=== PATIENT | male | born 1955 | race Caucasian/White ===

== ENCOUNTER 2017-05-18 05:58 | Day surgery (SDC) | payer MEDICAID ==
--- NOTE | 2017-05-08 20:56 | HP ---
DATE OF ADMISSION: 05/18/2017 HISTORY OF PRESENT ILLNESS: This is the first orthopedic outpatient admission for surgery for this 62-year- old male who has been admitted with severe pain of the right shoulder with severe rotator cuff impingement secondary to large exostosis formation of the AC joint. The patient has had failed treatment and continues to have severe pain problems. He is now being admitted for the surgical procedure of arthroscopic decompression. Procedure has been outlined to him along with the risks and complications involved with it. He understands it and has consented to the surgery. ALLERGIES: Penicillin. CURRENT MEDICATIONS: Glucosamine, vitamin C, and Relafen 500 mg. PAST MEDICAL HISTORY: The patient has had a previous history of increased cholesterol, also skin cancer, and also a history of chlorine gas causing slight scarring of his lungs. PAST SURGICAL HISTORY: Positive for previous right shoulder surgery along with colonoscopy. No anesthesia complications or problems are noted. He has a negative bleeding history, negative blood clot history. He is a nonsmoker. Alcohol is very infrequent, social only. PHYSICAL EXAMINATION: GENERAL: Examination today reveals a well-developed, well-nourished 62-year-old male in moderate distress. HEAD, EYES, EARS, NOSE, AND THROAT: Normocephalic. NECK: Supple. CHEST: Clear. COR: Regular rate. ABDOMEN: Soft. : Intact. EXTREMITIES: Examination of the right shoulder reveals positive pain on palpation over the right AC joint in the anterior rotator cuff region. He has positive Vazquez examination and +3 for pain, positive Neer examination +3 for pain. RADIOLOGY: X-rays reveal severe osteoarthritis of the AC joint with inferior exostosis formation right shoulder. PLAN: Plan will be for the patient to undergo a surgical arthroscopy of the right shoulder for rotator cuff decompression, removal of exostosis formation, possible rotator cuff repair if that is found. Procedures were outlined to him. He understands the risks and complications involved and has consented to the surgery. YARED /[id number] CK
[~2017-05-18 05:58] MED LIST: Lactated Ringers 1,000 ML IV SCH; Lidocaine 1%/Sod Bicarbonate in NS 8.4% 1 ML Syringe IDERM PRN; Sodium Chloride 0.9% 10 ML Syringe FLUSH PRN
[2017-05-18] MEDS ORDERED: Ropivacaine 0.5% 5 MG/ML 30 ML SDV ONE (06:42)
[2017-05-18] MEDS ORDERED: EPINEPHrine 1 MG/ML SDV ONE (06:42)
[2017-05-18] MEDS ORDERED: ceFAZolin 1 GM Vial ONE (07:02)
[2017-05-18] MEDS ORDERED: Rocuronium 50 MG/5 ML Vial ONE ×2 (07:02→09:10)
[2017-05-18] MEDS ORDERED: Dexamethasone 4 MG/ML SDV ONE ×2 (07:02→09:10)
[2017-05-18] MEDS ORDERED: Propofol 200 MG/20 ML SDV ONE (07:02)
[2017-05-18] MEDS ORDERED: Lactated Ringers 2,000 ML ONE (07:02)
[2017-05-18] MEDS ORDERED: fentaNYL 250 MCG/5 ML SDV ONE (07:02)
[2017-05-18] MEDS ORDERED: Midazolam 1 MG/ML 2 ML SDV ONE (07:02)
[2017-05-18] MEDS ORDERED: Ondansetron 4 MG/2 ML SDV ONE (07:02)
[2017-05-18] MEDS ORDERED: EPINEPHrine 1 MG/ML 30 ML MDV ONE ×2 (07:04→09:53)
--- NOTE | 2017-05-18 07:24 | PCM.PREANE ---
Preanesthetic Assessment - Procedure Proposed Procedure: Right Shoulder Arthroscopy with rotator cuff decompression - Anesthesia/Transfusion/Family Hx Anesthesia History: Prior Anesthesia Without Reaction - Review of Systems General: Fatigue Pulmonary: No Symptoms Cardiovascular: No Symptoms Gastrointestinal: No Symptoms Neurological: No Symptoms, Other Other: Reports: None - Physical Assessment NPO Status Date: 05/17/17 NPO Status Time: 21:00 O2 Sat by Pulse Oximetry: 94 Respiratory Rate: 16 Vital Signs: Last Vital Signs Temp 36.9 C 05/18/17 06:00 Pulse 69 05/18/17 06:00 Resp 16 05/18/17 06:00 BP 122/78 05/18/17 06:00 Pulse Ox 94 L 05/18/17 06:00 Height: 1.7 m Weight: 100.244 kg ASA Class: 2 Mental Status: Alert & Oriented x3 Airway Class: Mallampati = 2 Dentition: Reports: Normal Dentition Thyro-Mental Finger Breadths: 2 Mouth Opening Finger Breadths: 3 ROM/Head Extension: Full Lungs: Clear to Auscultation, Normal Respiratory Effort Cardiovascular: Regular Rate, Regular Rhythm - Imaging/EKG Impressions: SR, prolonged QT - Allergies Allergies/Adverse Reactions: Allergies Allergy/AdvReac Type Severity Reaction Status Date / Time Penicillins AdvReac Dizziness Verified 03/08/16 15:32 - Acknowledgements Anesthesia Type Planned: General Anesthesia, Regional Block Pt an Appropriate Candidate for the Planned Anesthesia: Yes Alternatives and Risks of Anesthesia Discussed w Pt/Guardian: Yes Pt/Guardian Understands and Agrees with Anesthesia Plan: Yes PreAnesthesia Questionnaire HEENT History: Reports: Impaired Vision, Other (See Below) Other HEENT History: impacted cerumen, glasses Cardiovascular History: Reports: High Cholesterol, Hypertension Respiratory History: Reports: Other (See Below) Other Respiratory History: cough Gastrointestinal History: Reports: Chronic Diarrhea Genitourinary History: Reports: None [employer] DIRECTOR History: Reports: None Musculoskeletal History: Reports: Other (See Below) Other Musculoskeletal History: shoulder pain, AC joint bone spurs, left knee pain, rotator cuff impingment , left rotator cuff tear Neurological History: Reports: None Psychiatric History: Reports: Other (See Below) Other Psychiatric History: fatigue Endocrine/Metabolic History: Reports: Obesity/BMI 30+ Hematologic History: Reports: Other (See Below) Other Hematologic History: sepsis Immunologic History: Reports: None Oncologic (Cancer) History: Reports: Other (See Below) Other Oncologic History: skin cancer - Past Surgical History Head Surgeries/Procedures: Reports: None Cardiovascular Surgical History: Reports: None Respiratory Surgical History: Reports: None GI Surgical History: Reports: Appendectomy, Colonoscopy, EGD Female Surgical History: Reports: None Male Surgical History: Reports: None Endocrine Surgical History: Reports: None Neurological Surgical History: Reports: None Musculoskeletal Surgical History: Reports: Shoulder Surgery Oncologic Surgical History: Reports: None Dermatological Surgical History: Reports: Other (See Below) - SUBSTANCE USE Smoking Status *Q: Former Smoker Tobacco Use Within Last Twelve Months: No Second Hand Smoke Exposure: No Days Per Week of Alcohol Use: 0 Recreational Drug Use History: No - HOME MEDS Home Medications: Home Meds Ascorbic Acid [Vitamin C] 500 mg PO DAILY 05/17/17 [History] Gluc HCl/Csa/Arslan Hy/Hyalur Ac [Glucosamine Chondroitin] 1 cap PO DAILY [History] Lisinopril [Lisinopril] 10 mg PO DAILY 05/17/17 [History] - CURRENT (IN HOUSE) MEDS Current Meds: Current Medications Lactated Ringer's (Ringers, Lactated) 1,000 mls @ 125 mls/hr IV ASDIRECTED [place] Stop: 05/18/17 23:00 Last Admin: 05/18/17 06:30 Dose: 125 mls/hr Lidocaine/Sodium Bicarbonate (Buffered Lidocaine 1% In Ns 8.4%) 0.25 ml IDERM ONETIME PRN PRN Reason: Prior to IV Start Stop: 05/18/17 18:00 Last Admin: 05/18/17 06:29 Dose: 0.25 ml Sodium Chloride (Saline Flush) 10 ml FLUSH ASDIRECTED PRN PRN Reason: Keep Vein Open Stop: 05/18/17 18:00 Discontinued Medications Cefazolin Sodium (Ancef) Confirm Administered Dose 2 gm .ROUTE .STK-MED ONE Stop: 05/18/17 07:03 Dexamethasone (Dexamethasone) Confirm Administered Dose 4 mg .ROUTE .STK-MED ONE Stop: 05/18/17 07:03 Epinephrine HCl (Adrenalin) Confirm Administered Dose 1 mg .ROUTE .STK-MED ONE Stop: 05/18/17 06:43 Fentanyl (Sublimaze) Confirm Administered Dose 250 mcg .ROUTE .STK-MED ONE Stop: 05/18/17 07:03 Lactated Ringer's (Ringers, Lactated) Confirm Administered Dose 2,000 mls @ as directed .ROUTE .[facility]-MED ONE Stop: 05/18/17 07:03 Midazolam HCl (Versed 1 Mg/Ml) Confirm Administered Dose 2 mg .ROUTE .[facility]-MED ONE Stop: 05/18/17 07:03 Ondansetron HCl (Zofran) Confirm Administered Dose 4 mg .ROUTE .[facility]-MED ONE Stop: 05/18/17 07:03 Propofol (Diprivan 20 Ml) Confirm Administered Dose 400 mg .ROUTE .[facility]-MED ONE Stop: 05/18/17 07:03 Rocuronium [place] (Zemuron) Confirm Administered Dose 50 mg .ROUTE .[facility]-MED ONE Stop: 05/18/17 07:03 Ropivacaine (Naropin 0.5%) Confirm Administered Dose 30 ml .ROUTE .[facility]-MED ONE Stop: 05/18/17 06:43
[2017-05-18] MEDS ORDERED: Acetaminophen/HYDROcodone 325-5 MG Tab PO PRN (07:43)
[2017-05-18] MEDS ORDERED: Ketorolac 15 MG/ML SDV IVPUSH PRN (07:43)
[2017-05-18] MEDS ORDERED: Ondansetron 4 MG/2 ML SDV IVPUSH PRN (07:43)
[2017-05-18] MEDS ORDERED: Cyclobenzaprine 10 MG Tab PO PRN (07:43)
[2017-05-18] MEDS ORDERED: Phenylephrine/Normal Saline 100 MCG/ML 10 ML Syringe ONE (09:10)
[2017-05-18] MEDS ORDERED: ePHEDrine/Normal Saline 25 MG/5 ML Syringe ONE (09:10)
--- NOTE | 2017-05-18 09:30 | PCM.SN ---
- Free Text/Narrative Note: Anesthesia Procedure Note: (Interscalene Block Note) Date: 05/18/2017 Time Out: 736 Start: 736 Stop: 749 Surgical Procedure: Right Shoulder Video Arthroscopy with Rotator Cuff Decompression Diagnosis: Right Shoulder Rotator Cuff impingement, bone spur Current Procedure: Right Interscalene Block under US guidance for postoperative pain control requested by Dr. Galindo. Patient chart reviewed, risk/benefits discussed with patient, consent obtained. Patient positioned supine, monitors/alarms on, oxygen placed via nasal cannula at 2 LPM. IV sedation administered: Versed 2mg IV @ 0738 Fentanyl 50 mcg IV @ 0738 Monitors applied (EKG, NIBP, SpO2) alarms on. Nasal Cannula on at 3L/min. Right shoulder prepped with two chloropreps. Sterile drapes placed with aseptic technique noted. Under US guidance right subclavian artery visualized along with the right brachial plexus. Plexus followed up to C6 cricoid level, and area localized with 2mls of 1% lidocaine. 22gauge 2 inch stimiplex needle advanced under US with 0.8mV with stimulation of biceps noted. Good stimulation noted with decreased voltage and absent at 0.2mVs. 1ml of Normal Saline injected with loss of stimulation noted to confirm needle not placed intraneurally. Incremental dosing of 5mls with negative aspiration noted prior to each injection of 0.5% ropivacaine with 1:200,000 epinephrine. Total volume=30mls. Clarence tolerated the procedure well. No complications were noted. Vital signs stable throughout the procedure. Clarence verbalized pain subsiding in shoulder with limited movement noted at completion. See Nursing Notes for vital signs. Vital signs stable throughout procedure. Blu De La Torre CRNA
[2017-05-18] MEDS ORDERED: fentaNYL 100 MCG/2 ML SDV ONE (09:59)
[2017-05-18] MEDS ORDERED: Neostigmine Methylsulfate 1 MG/ML 5 ML Syringe ONE (10:12)
--- NOTE | 2017-05-18 10:48 | PCM.POSTAN ---
POST ANESTHESIA ASSESSMENT - MENTAL STATUS Mental Status: Alert, Oriented - VITAL SIGNS Pulse Rate: 54 SaO2: 98 Resp Rate: 10 Blood Pressure: 114/70 Temperature: 36.2 C - RESPIRATORY Respiratory Status: Respiratory Rate WNL, Airway Patent, O2 Saturation Stable, Supplemental Oxygen - CARDIOVASCULAR CV Status: Pulse Rate WNL, Blood Pressure Stable - GASTROINTESTINAL GI Status: No Symptoms - PAIN Pain Score: 0 - POST OP HYDRATION Hydration Status: Adequate & Stable
[2017-05-18] MEDS ORDERED: fentaNYL 100 MCG/2 ML SDV IVPUSH PRN (10:55)
[2017-05-18] MEDS ORDERED: Haloperidol Lactate 5 MG/ML SDV IVPUSH ONE (10:55)
[2017-05-18] MEDS ORDERED: HYDROmorphone 0.5 MG/0.5 ML SYRINGE IV PRN (10:56)
--- NOTE | 2017-05-18 11:51 | PCM48HPAN ---
Post Anesthesia Note - EVALUATION WITHIN 48HRS OF ANESTHETIC Vital Signs in Normal Range: Yes Patient Participated in Evaluation: Yes Respiratory Function Stable: Yes Airway Patent: Yes Cardiovascular Function Stable: Yes Hydration Status Stable: Yes Pain Control Satisfactory: Yes Nausea and Vomiting Control Satisfactory: Yes Mental Status Recovered: Yes Pulse Rate: 54 Resp Rate: 12 Temperature: 36.2 C Blood Pressure: 114/70 - COMMENTS/OBSERVATIONS Free Text/Narrative:: Interscalene block working well. Clarence denies pain.
[2017-05-18] MEDS ORDERED: Morphine 15 MG Tab.ER PO ONE (12:00)
[2017-05-18 14:00] VITALS: BP 122/78
--- NOTE | 2017-05-19 07:55 | OR ---
DATE OF OPERATION: 05/18/2017 SURGEON: Merrill Galindo MD PREOPERATIVE DIAGNOSIS: 1. Right shoulder rotator cuff impingement. 2. Right shoulder severe acromioclavicular joint degenerative disease with inferior exostosis formation. 3. Right shoulder intra-articular tearing, glenoid labrum. 4. Right shoulder previous rotator cuff repair with degeneration and biceps tendinosis of the right shoulder. POSTOPERATIVE DIAGNOSIS: 1. Right shoulder rotator cuff impingement. 2. Right shoulder severe acromioclavicular joint degenerative disease with inferior exostosis formation. 3. Right shoulder intra-articular tearing, glenoid labrum. 4. Right shoulder previous rotator cuff repair with degeneration and biceps tendinosis of the right shoulder. ANESTHESIA: General. OPERATION PERFORMED: 1. Right shoulder arthroscopic debridement of shoulder joint and excision of torn labrum and fibrous adhesions and debridement of partial tearing, rotator cuff. 2. Right shoulder arthroscopic partial acromionectomy. 3. Arthroscopic distal clavicle resection, right shoulder. DESCRIPTION OF PROCEDURE: The patient was taken to the operating room in supine position, was placed under a general anesthesia. He was then placed in a sitting position for an arthroscopic approach to the right shoulder. Once the patient was positioned, the operation proceeded with prepping and draping of the shoulder by standard technique and after prepping and draping, the operation proceeded with a posterior approach to the shoulder through the anatomical soft spot. With the posterior portal developed, an arthroscope was inserted. A [employer] papa was used to develop the anterior portal. The operation proceeded with evaluation of the shoulder joint. The subscapularis was intact anteriorly although significant scarring leading up to the glenoid labrum. The glenoid labrum had tearing and degeneration; anterior, superior, and posterior. This was all debrided smooth. The biceps tendon showed biceps tendinosis probably secondary to the impingement problem from the exostosis and this was slightly debrided. The rotator cuff itself had a previous rotator cuff surgery. There were several loose sutures within the joint. The area of the rotator cuff was marked. This did show degeneration of the repair site area. There was still significant fiber formation attachment. With the marking suture, this would be examined on the exterior surface. Once the intra-articular portion of the surgery was completed, the operation then proceeded with the arthroscope inserted in the subacromial space. A lateral portal was then developed. The bursectomy and removal of fibrous adhesions were carried out in the subacromial space area to gain exposure of the exterior surface of the rotator cuff area along with the undersurface of the clavicle and the acromion. Once that was completed, the evaluation showed a very large anterior exostosis formation on the acromion with significant curving extending down to the area of the rotator cuff damage. Also, there was a layer of large exostosis formation distal in the clavicle. The operation then proceeded with partial acromionectomy using the standard bur approach. Once the acromion was burred smooth and flat, the operation then proceeded with removal of distal portion of the clavicle, removing the large exostosis that had formed. The space for the clavicle was approximately 7 mm between the clavicle and acromion. The soft tissues in the capsular area were carefully inspected to make sure no bone fragments remained, and then the operation proceeded with debridement of the area and then I went back to where the area of attachment of the rotator cuff was seen, it was repalpated, it definitely showed degeneration of the fibers that had significant hardness to it and felt that was sufficient for continued use rather than to try to approach and go to a full-blown rotator cuff repair. The operation then proceeded with the final inspection of the joint area. All bleeding was controlled with electrocautery. After thorough irrigation of the joint area, the patient's wounds were then closed with 3-0 Prolene. Standard soft dressings were applied. The patient tolerated the procedure well. He left the operating room in stable condition to his room for recovery. ESTIMATED BLOOD LOSS: MMODAL /[id number]
== END 2017-05-18 13:45 | disposition home or self-care (01) ==
LOC: JD.SDS 05:58
PROVIDERS: ATTEND Specialist
DX: M75.41 Impingement syndrome of right shoulder (principal); S43.491A Other sprain of right shoulder joint, initial encounter; M89.9 Disorder of bone, unspecified; M75.21 Bicipital tendinitis, right shoulder; E78.5 Hyperlipidemia, unspecified; Z88.0 Allergy status to penicillin; Z79.899 Other long term (current) drug therapy; X58.XXXA Exposure to other specified factors, initial encounter
CPT/HCPCS: 29823; 29824; 29826; 64415; A9270; J0171; J0690; J1100; J2250; J2405; J2710; J2795; J3010; J7050; J7120; J2704

== ENCOUNTER 2021-04-22 09:44 | Day surgery (SDC) | payer MEDICARE, OTHER ==
[~2021-04-22 09:44] MED LIST changes: -Sodium Chloride 0.9% 10 ML Syringe FLUSH PRN; +Sodium Chloride 0.9% 10 ML Syringe FLUSH SCH
[2021-04-22] MEDS ORDERED: Bupivacaine 0.5% 30 ML SDV ONE (12:04)
[2021-04-22] MEDS ORDERED: Midazolam 1 MG/ML 2 ML SDV ONE (12:11)
[2021-04-22] MEDS ORDERED: Propofol 200 MG/20 ML SDV ONE (12:11)
[2021-04-22] MEDS ORDERED: Lidocaine 1% 4 ML ONE (12:11)
[2021-04-22] MEDS ORDERED: fentaNYL 100 MCG/2 ML SDV ONE (12:11)
[2021-04-22] MEDS ORDERED: Clindamycin Phosphate in D5W 900 MG in Premix Bag 1 BAG IV ONE ×2 (12:45)
[2021-04-22] MEDS ORDERED: Ketamine 500 mg/10 ML MDV ONE (12:52)
[2021-04-22] MEDS ORDERED: Ondansetron 4 MG/2 ML SDV ONE (13:31)
[2021-04-22] MEDS ORDERED: Ondansetron 4 MG/2 ML SDV IVPUSH PRN (15:00)
[2021-04-22] MEDS ORDERED: HYDROmorphone 0.5 MG/0.5 ML Syringe IVPUSH PRN (15:00)
[2021-04-22] MEDS ORDERED: fentaNYL 100 MCG/2 ML SDV IVPUSH PRN (15:00)
[2021-04-22] MEDS ORDERED: oxyCODONE 5 MG Tab PO ONE (15:58)
[2021-04-22 16:46] VITALS: BP 128/74; PULSE 74
== END 2021-04-22 16:55 | disposition home or self-care (01) ==
LOC: JD.SDS 09:44
PROVIDERS: ATTEND Surgery
DX: K40.90 Unilateral inguinal hernia, without obstruction or gangrene, not specified as recurrent (principal); I10 Essential (primary) hypertension; N40.0 Benign prostatic hyperplasia without lower urinary tract symptoms; E78.00 Pure hypercholesterolemia, unspecified; E66.9 Obesity, unspecified; Z88.0 Allergy status to penicillin; Z90.49 Acquired absence of other specified parts of digestive tract; Z98.890 Other specified postprocedural states; Z68.34 Body mass index [BMI] 34.0-34.9, adult
CPT/HCPCS: 49505; A9270; C1781; J2250; J2370; J2405; J2704; J3010; J3490; J7120; 00830

== ENCOUNTER 2023-04-27 09:10 | Day surgery (SDC) | payer MEDICARE, OTHER ==
[~2023-04-27 09:10] MED LIST changes: +Cefuroxime 10 MG/ML SYRINGE EYELF SCH; -Lactated Ringers 1,000 ML IV SCH; +Lidocaine 1% PF 2 ML SDV INJECT SCH; -Lidocaine 1%/Sod Bicarbonate in NS 8.4% 1 ML Syringe IDERM PRN; +Pilocarpine 4% Ophth Soln 15 ML Bot EYELF SCH; -Sodium Chloride 0.9% 10 ML Syringe FLUSH SCH
[2023-04-27 09:54] VITALS: BP 138/72; PULSE 62
[2023-04-27] MEDS: Polymyxin B/Trimethoprim 10 ML Bottle EYELF SCH ×3 (09:55→11:40)
[2023-04-27] MEDS: Brimonidine 0.2% Ophth Soln 5 ML Bottle EYELF SCH ×3 (10:00→11:40)
[2023-04-27] MEDS: Phenylephrine 2.5% Ophth Soln 2 ML Bot EYELF SCH ×5 (10:05→11:09)
[2023-04-27] MEDS: Tropicamide 1% Ophth Soln 3 ML Bottle EYELF SCH ×4 (10:11→10:57)
[2023-04-27] MEDS: Tetracaine HCl/PF 0.5% 4 ML Bottle EYEBOTH SCH ×4 (10:59→11:21)
== END 2023-04-27 11:48 ==
LOC: JD.SDS 09:10
PROVIDERS: ATTEND Ophthalmology
DX: H25.813 Combined forms of age-related cataract, bilateral (principal); H21.81 Floppy iris syndrome; H21.42 Pupillary membranes, left eye; I10 Essential (primary) hypertension; E78.00 Pure hypercholesterolemia, unspecified; Z79.899 Other long term (current) drug therapy; Z88.0 Allergy status to penicillin
CPT/HCPCS: A9270-GY; J0697; J3490

== ENCOUNTER 2023-05-25 13:30 | Day surgery (SDC) | payer MEDICARE, OTHER ==
[2023-05-25] MEDS: Polymyxin B/Trimethoprim 10 ML Bottle EYERT SCH (13:48)
[2023-05-25] MEDS: Brimonidine 0.2% Ophth Soln 5 ML Bottle EYERT SCH (13:53)
[2023-05-25] MEDS: Phenylephrine 2.5% Ophth Soln 2 ML Bot EYERT SCH (13:56)
[2023-05-25] MEDS: Tropicamide 1% Ophth Soln 3 ML Bottle EYERT SCH (13:59)
[2023-05-25] MEDS: Tetracaine HCl/PF 0.5% 4 ML Bottle EYEBOTH SCH (14:35)
[2023-05-25] MEDS: Lidocaine 1% PF 2 ML SDV INJECT SCH (14:57)
[2023-05-25] MEDS: Pilocarpine 4% Ophth Soln 15 ML Bot EYERT SCH (15:11)
[2023-05-25] MEDS: Cefuroxime 10 MG/ML SYRINGE EYERT SCH (15:11)
[2023-05-25 15:21] VITALS: BP 137/93; PULSE 60
== END 2023-05-25 15:19 | disposition home or self-care (01) ==
LOC: JD.SDS 13:30
PROVIDERS: ATTEND Ophthalmology
DX: H25.811 Combined forms of age-related cataract, right eye (principal); H21.81 Floppy iris syndrome; H21.41 Pupillary membranes, right eye; H52.31 Anisometropia; H02.831 Dermatochalasis of right upper eyelid; H02.834 Dermatochalasis of left upper eyelid; H57.813 Brow ptosis, bilateral; I10 Essential (primary) hypertension; E78.00 Pure hypercholesterolemia, unspecified; Z96.1 Presence of intraocular lens; Z79.899 Other long term (current) drug therapy; Z88.0 Allergy status to penicillin
CPT/HCPCS: A9270-GY; J0697; J3490; V2788-GY